=== PATIENT | female | born 1970 | race Caucasian/White ===

== ENCOUNTER 2018-05-19 18:30 | Emergency (ER) | payer OTHER ==
--- NOTE | 2018-05-19 19:26 | RAD REPORT ---
EXAM DESCRIPTION: RAD - Chest Single View - 05/19/2018 7:17 pm CLINICAL HISTORY: CHEST PAIN Chest pain. COMPARISON: Abdomen 1 View (KUB) dated 05/04/2016 FINDINGS: Portable technique limits examination quality. The lungs are grossly clear. The heart is normal in size. No displaced fractures. IMPRESSION: No acute intrathoracic process suspected.
--- NOTE | 2018-05-19 19:42 | RAD REPORT ---
EXAM DESCRIPTION: VAS - Extrem Venous W Compress Bernardino - 05/19/2018 7:35 pm CLINICAL HISTORY: SWELLING Bilateral leg edema and swelling. COMPARISON: Chest Single View dated 05/19/2018; Abdomen Pelvis W Contrast dated 08/30/2016 TECHNIQUE: Real-time sonographic interrogation of the left and right lower extremity deep venous sys tems was performed. FINDINGS: Normal compressibility, flow augmentation, phasic flow and spontaneous flow is identified in both the left and right lower extremity deep venous systems. IMPRESSION: No sonographic evidence of left or right lower extremity deep venous thrombosis.
[2018-05-19 20:04] LABS: Absolute Lymphocytes (CBC) 3.2 K/uL (0.7-4.9); Absolute Monocytes 0.6 K/uL (0.1-1.3); Absolute Neutrophil 7.4 K/uL (1.8-8.0); Basophils % 1.1 % (0-1.3); Eosinophils % 2.3 % (0-4.4); Hematocrit 46.1 % (36.0-45.0); Lymphocytes % 27.8 % (15.3-44.8); MCH 32.6 pg (27.0-35.0); MPV 9.2 fL (7.6-11.3); RBC Red Blood Cell Count 4.95 M/uL (3.86-4.86)
[2018-05-19 20:08] LABS: Protime INR 0.87
[2018-05-19 20:39] LABS: ALT/SGPT 42 U/L (12-78); AST/SGOT 20 U/L (15-37); Albumin 3.8 g/dL (3.4-5.0); Alkaline Phosphatase 134 U/L (45-117); BUN Blood Urea Nitrogen 9 mg/dL (7-18); Bicarbonate 28 mmol/L (21-32); Bilirubin Direct < 0.1 mg/dL (0-0.2); Bilirubin Total 0.3 mg/dL (0.2-1.0); CKMB Creatine Kinase MB < 1.0 ng/mL (0.3-3.6); Creatine Phosphokinase 38 U/L (26-192); Glucose Level 91 mg/dL (74-106); Magnesium 2.4 mg/dL (1.8-2.4); NT PRO-BNP 43 pg/mL (<125); Potassium 3.6 mmol/L (3.5-5.1); Protein, Total 7.7 g/dL (6.4-8.2); Sodium Level 139 mmol/L (136-145)
--- NOTE | 2018-05-19 20:46 | ER ---
Nurse's Notes [facility] Name: Cyndi Arndt Age: 48 yrs Sex: Female : 1970 Arrival Date: 05/19/2018 Time: 18:34 Bed 8 Private MD: Marc Yu Diagnosis: Costochondritis Presentation: 05/19 18:41 Presenting complaint: Patient states: Left side chest pain that is worse with deep aj breathing. Transition of care: patient was not received from another setting of care. Onset of symptoms was May 14, 2018. Risk Assessment: Do you want to hurt yourself or someone else? Patient reports no desire to harm self or others. Initial Sepsis Screen: Does the patient meet any 2 criteria? No. Patient's initial sepsis screen is negative. Does the patient have a suspected source of infection? No. Patient's initial sepsis screen is negative. Care prior to arrival: None. 18:41 Method Of Arrival: Ambulatory aj 18:41 Acuity: KITA 3 aj Triage Assessment: 18:44 General: Appears in no apparent distress. uncomfortable, Behavior is calm, cooperative, aj appropriate for age. Pain: Complains of pain in chest. Neuro: Level of Consciousness is awake, alert, obeys commands, Oriented to person, place, time, situation, Appropriate for age. Cardiovascular: Reports chest pain, Capillary refill < 3 seconds in bilateral fingers Patient's skin is warm and dry. Respiratory: Reports pain with respiration Airway is patent Respiratory effort is even, unlabored, Respiratory pattern is regular, symmetrical. Derm: Skin is intact, is healthy with good turgor, Skin is pink, warm \T\ dry. normal. 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 - Social history:: Smoking status: Patient uses tobacco products, smokes one-half pack cigarettes per day, smokes one pack cigarettes per day. - Ebola Screening: : Patient negative for fever greater than or equal to 101.5 degrees Fahrenheit, and additional compatible Ebola Virus Disease symptoms Patient denies exposure to infectious person Patient denies travel to an Ebola-affected area in the 21 days before illness onset No symptoms or risks identified at this time. Screenin:38 Abuse screen: Denies threats or abuse. Denies injuries from another. Nutritional aa1 screening: No deficits noted. Tuberculosis screening: No symptoms or risk factors identified. Fall Risk None identified. Assessment: 19:38 Reassessment: Patient appears in no apparent distress at this time. Pt back from CT at aa1 this time. General: Appears comfortable, Behavior is calm, cooperative, appropriate for age. Pain: Complains of pain in left arm and chest Pain radiates to left arm Pain began 4 days ago Is continuous. Neuro: Level of Consciousness is awake, alert, obeys commands, Oriented to person, place, time, situation, Moves all extremities. Full function Gait is steady, Speech is normal. Cardiovascular: Reports chest pain, Denies diaphoresis, nausea, palpitations, shortness of breath, Heart tones S1 S2 present Capillary refill < 3 seconds Clubbing of nail beds is absent JVD is absent Patient's skin is warm and dry. Rhythm is regular Chest pain is described as vague, quality is sharp, began 4 days ago is aggravated by breathing. Respiratory: Airway is patent Respiratory effort is even, unlabored, Respiratory pattern is regular, symmetrical, Breath sounds are clear bilaterally. GI: No signs and/or symptoms were reported involving the gastrointestinal system. : No signs and/or symptoms were reported regarding the genitourinary system. EENT: No signs and/or symptoms were reported regarding the EENT system. Derm: Skin is intact, is healthy with good turgor, Skin is pink, warm \T\ dry. Musculoskeletal: Circulation, motion, and sensation intact. Capillary refill < 3 seconds, Range of motion: intact in all extremities. 20:37 Reassessment: Patient appears in no apparent distress at this time. Patient and/or aa1 family updated on plan of care and expected duration. Pain level reassessed. Patient is alert, oriented x 3, equal unlabored respirations, skin warm/dry/pink. Awaiting lab results. 20:57 Reassessment: Patient appears in no apparent distress at this time. Patient is alert, aa1 oriented x 3, equal unlabored respirations, skin warm/dry/pink. Discussed d/c \T\ f/u instructions with pt; denies questions or concerns at this time Patient states feeling better. Vital Signs: 18:44 BP 141 / 81; Pulse 92; Resp 18; Temp 97.9; Pulse Ox 100% on R/A; Weight 99.79 kg; aj Height 5 ft. 2 in. (157.48 cm); 19:47 BP 134 / 96; Pulse 77; Resp 16; Pulse Ox 98% on R/A; aa1 20:37 BP 102 / 84; Pulse 86; Resp 16; Pulse Ox 95% on R/A; Pain 9/10; aa1 18:44 Body Mass Index 40.24 (99.79 kg, 157.48 cm) aj ED Course: 18:34 Patient arrived in ED. sb2 18:34 Marc Yu MD is Private Physician. sb2 18:42 Triage completed. aj 18:44 Arm band placed on right wrist. Patient placed in an exam room. aj 18:49 Santa Samano [facility]C [facility]. snw 18:49 Juve Calvillo MD is Attending Physician. snw 19:08 Rosa Saunders, TYESHA is Primary Nurse. aa1 19:11 EKG done, by ED staff, reviewed by Santa COBB. jp3 19:15 X-ray completed. Patient tolerated procedure well. kp1 19:16 XRAY Chest (1 view) In Process Unspecified. EDMS 19:35 US Extremity Venous W Compression Bernardino In Process Unspecified. EDMS 19:38 Patient has correct armband on for positive identification. Placed in gown. Bed in low aa1 position. Call light in reach. site monitor on. Pulse ox on. NIBP on. 19:38 Patient maintains SpO2 saturation greater than 95% on room air. aa1 19:45 Missed attempt(s): 22 gauge in right forearm. Bleeding controlled, band aid applied, aa1 catheter tip intact. 19:50 Initial lab(s) drawn, by nh, sent to lab. Inserted saline lock: 20 gauge in left aa1 antecubital area, using aseptic technique. Blood collected. 20:44 Marc Yu MD is Referral Physician. snw 20:57 No provider procedures requiring assistance completed. IV discontinued, intact, aa1 bleeding controlled, No redness/swelling at site. Pressure dressing applied. Administered Medications: 20:38 Drug: fentaNYL (PF) 50 mcg Route: IVP; Site: left antecubital; aa1 20:59 Follow up: Response: No adverse reaction; Pain is decreased aa1 Outcome: 20:46 Discharge ordered by MD. snw 20:57 Discharged to home ambulatory, with family. aa1 20:57 Condition: good 20:57 Discharge instructions given to patient, family, Instructed on discharge instructions, follow up and referral plans. medication usage, Demonstrated understanding of instructions, follow-up care, medications, Prescriptions given X 2. 20:59 Patient left the ED. aa1 Signatures: Dispatcher [employer] EDMS Rosa Saunders RN TYESHA aa1 Faiza Bhagat RN Santa Rdz, STADIUM ATTENDANT-C STADIUM ATTENDANT-Adela Pimentel kp1 Aminah Huynh sb2 Jason Huitron jp3
--- NOTE | 2018-05-19 20:46 | EDPHYS ---
Physician Documentation [facility] Name: Cyndi Arndt Age: 48 yrs Sex: Female : 1970 Arrival Date: 05/19/2018 Time: 18:34 Bed 8 Private MD: Marc Yu ED Physician Juve Calvillo HPI: 05/19 19:09 This 48 yrs old Female presents to ER via Ambulatory with complaints of Chest snw Pain. 19:09 Onset: The symptoms/episode began/occurred suddenly, 2 day(s) ago, and became snw persistent. Associated signs and symptoms: Pertinent positives: The patient does not have any pertinent positive signs or symptoms associated with pediatric illness. Modifying factors: The patient symptoms are alleviated by nothing, the patient symptoms are aggravated by deep inspiration. The patient has not experienced similar symptoms in the past. sees Aimee. just returned via car from [place] last week, bilateral legs with edema per report. REGULATORY INTERN: 18:44 LMP N/A - Hysterectomy aj Historical: - Allergies: 18:44 PENICILLINS; aj - Home Meds: 20:12 Lasix 20 mg Oral tab 1 tab once daily [Active]; meloxicam 7.5 mg oral tab 1 tab twice a aa1 day [Active]; Vitamin D3 5,000 unit oral tab weekly [Active]; - PMHx: 20:12 Arthritis; fluid retention; Hypertension; aa1 - PSHx: 18:44 Hysterectomy; Cholecystectomy; Tubal ligation; bladder mesh; aj - Immunization history:: Adult Immunizations up to date. - Social history:: Smoking status: Patient uses tobacco products, smokes one-half pack cigarettes per day, smokes one pack cigarettes per day. - Ebola Screening: : Patient negative for fever greater than or equal to 101.5 degrees Fahrenheit, and additional compatible Ebola Virus Disease symptoms Patient denies exposure to infectious person Patient denies travel to an Ebola-affected area in the 21 days before illness onset No symptoms or risks identified at this time. ROS: 19:09 Constitutional: Negative for fever, chills, and weight loss, Eyes: Negative for injury, snw pain, redness, and discharge, ENT: Negative for injury, pain, and discharge, Neck: Negative for injury, pain, and swelling. 19:09 Respiratory: Negative for shortness of breath, cough, wheezing, and pleuritic chest pain, Abdomen/GI: Negative for abdominal pain, nausea, vomiting, diarrhea, and constipation, Back: Negative for injury and pain, : Negative for injury, bleeding, discharge, and swelling, MS/Extremity: Negative for injury and deformity, Skin: Negative for injury, rash, and discoloration, Neuro: Negative for headache, weakness, numbness, tingling, and seizure. 19:09 Cardiovascular: Positive for chest pain. Exam: 19:09 Constitutional: This is a well developed, well nourished patient who is awake, alert, snw and in no acute distress. Head/Face: Normocephalic, atraumatic. Eyes: Pupils equal round and reactive to light, extra-ocular motions intact. Lids and lashes normal. Conjunctiva and sclera are non-icteric and not injected. Cornea within normal limits. Periorbital areas with no swelling, redness, or edema. ENT: Nares patent. No nasal discharge, no septal abnormalities noted. Tympanic membranes are normal and external auditory canals are clear. Oropharynx with no redness, swelling, or masses, exudates, or evidence of obstruction, uvula midline. Mucous membranes moist. Neck: Trachea midline, no thyromegaly or masses palpated, and no cervical lymphadenopathy. Supple, full range of motion without nuchal rigidity, or vertebral point tenderness. No Meningismus. Chest/axilla: Normal chest wall appearance and motion. Nontender with no deformity. No lesions are appreciated. Cardiovascular: Regular rate and rhythm with a normal S1 and S2. No gallops, murmurs, or rubs. Normal PMI, no JVD. No pulse deficits. Respiratory: Lungs have equal breath sounds bilaterally, clear to auscultation and percussion. No rales, rhonchi or wheezes noted. No increased work of breathing, no retractions or nasal flaring. Abdomen/GI: Soft, non-tender, with normal bowel sounds. No distension or tympany. No guarding or rebound. No evidence of tenderness throughout. Back: No spinal tenderness. No costovertebral tenderness. Full range of motion. Skin: Warm, dry with normal turgor. Normal color with no rashes, no lesions, and no evidence of cellulitis. MS/ Extremity: Pulses equal, no cyanosis. Neurovascular intact. Full, normal range of motion. Neuro: Awake and alert, GCS 15, oriented to person, place, time, and situation. Cranial nerves II-XII grossly intact. Motor strength 5/5 in all extremities. Sensory grossly intact. Cerebellar exam normal. Normal gait. Vital Signs: 18:44 BP 141 / 81; Pulse 92; Resp 18; Temp 97.9; Pulse Ox 100% on R/A; Weight 99.79 kg; aj Height 5 ft. 2 in. (157.48 cm); 19:47 BP 134 / 96; Pulse 77; Resp 16; Pulse Ox 98% on R/A; aa1 20:37 BP 102 / 84; Pulse 86; Resp 16; Pulse Ox 95% on R/A; Pain 9/10; aa1 18:44 Body Mass Index 40.24 (99.79 kg, 157.48 cm) aj MDM: 18:49 Patient medically screened. snw 20:47 Data reviewed: vital signs, nurses notes, lab test result(s), EKG, radiologic studies. snw Data interpreted: Pulse oximetry: on room air is 95 %. Interpretation: acceptable. Special discussion: Based on the patient's history, exam, and Dx evaluation, there is no indication for emergent intervention or inpatient Tx. It is understood by the patient/guardian that if the Sx's persist or worsen they need to return immediately for re-evaluation. Based on the history and exam findings, there is no indication for further emergent testing or inpatient evaluation. I discussed with the patient/guardian the need to see the plumber pipe fitting for further evaluation of the symptoms. I discussed with the patient/guardian the need to see the primary care provider for further evaluation of the symptoms. 05/19 18:58 Order name: Basic Metabolic Panel; Complete Time: 20:44 snw 05/19 18:58 Order name: CBC with Diff; Complete Time: 20:24 snw 05/19 18:58 Order name: Ckmb; Complete Time: 20:44 snw 05/19 18:58 Order name: CPK; Complete Time: 20:44 snw 05/19 18:58 Order name: LFT's; Complete Time: 20:44 snw 05/19 18:58 Order name: Magnesium; Complete Time: 20:44 snw 05/19 18:58 Order name: NT PRO-BNP; Complete Time: 20:44 snw 05/19 18:58 Order name: PT-INR; Complete Time: 20:24 snw 05/19 18:58 Order name: Ptt, Activated; Complete Time: 20:24 snw 05/19 18:58 Order name: Troponin (emerg Dept Use Only); Complete Time: 20:44 snw 05/19 18:58 Order name: XRAY Chest (1 view); Complete Time: 19:45 snw 05/19 18:58 Order name: DD; Complete Time: 20:24 snw 05/19 19:14 Order name: Urine Dipstick--Ancillary (enter results) eb 05/19 19:14 Order name: Urine --Ancillary (enter results) eb 05/19 18:58 Order name: EKG; Complete Time: 18:59 snw 05/19 18:58 Order name: Cardiac monitoring; Complete Time: 20:06 snw 05/19 18:58 Order name: EKG - Nurse/Tech; Complete Time: 20:06 snw 05/19 18:58 Order name: IV Saline Lock; Complete Time: 20:06 snw 05/19 18:58 Order name: Labs collected and sent; Complete Time: 20:06 snw 05/19 18:58 Order name: O2 Per Protocol; Complete Time: 20:06 snw 05/19 18:58 Order name: O2 Sat Monitoring; Complete Time: 20:07 snw 05/19 18:58 Order name: Urine Dipstick-Ancillary (obtain specimen); Complete Time: 20:07 snw 05/19 19:02 Order name: US Extremity Venous W Compression Bernardino; Complete Time: 19:45 snw Administered Medications: 20:38 Drug: fentaNYL (PF) 50 mcg Route: IVP; Site: left antecubital; aa1 20:59 Follow up: Response: No adverse reaction; Pain is decreased aa1 Disposition: 05/20 06:52 Co-signature as Attending Physician, Juve Calvillo MD I agree with the assessment and lawrence plan of care. Disposition: 05/19/18 20:46 Discharged to Home. Impression: Costochondritis. - Condition is Stable. - Discharge Instructions: Nonspecific Chest Pain, Costochondritis. - Prescriptions for Diclofenac Sodium 75 mg Oral Tablet Sustained Release - take 1 tablet by ORAL route 2 times per day; 30 tablet. orphenadrine citrate 100 mg Oral Tablet Sustained Release - take 1 tablet by ORAL route 2 times per day As needed; 20 tablet. - Medication Reconciliation Form, Thank You Letter, Antibiotic Education, Prescription Opioid Use form. - Follow up: Marc Yu MD; When: Tomorrow; Reason: Recheck today's complaints, Continuance of care, Re-evaluation by your physician. Follow up: Emergency Department; When: As needed; Reason: Worsening of condition. Signatures: Dispatcher [employer] EDRosa Gallegos RN RN aa1 Faiza Bhagat RN RN aj Anderson, Corey, MD MD cha Therrien, Shelly, [employer]OR [employer]-C [employer]OR [employer]-Csnw Corrections: (The following items were deleted from the chart) 05/19 20:59 20:46 05/19/2018 20:46 Discharged to Home. Impression: Costochondritis. Condition is aa1 Stable. Forms are Medication Reconciliation Form, Thank You Letter, Antibiotic Education, Prescription Opioid Use. Follow up: Marc Yu; When: Tomorrow; Reason: Recheck today's complaints, Continuance of care, Re-evaluation by your physician. Follow up: Emergency Department; When: As needed; Reason: Worsening of condition. snw
[2018-05-19 21:14] VITALS: TEMP 97.9
[2018-05-19 21:17] VITALS: BP 102/84; O2SAT 95
[2018-05-19 22:17] LABS: Urine Blood NEGATIVE (NEG); Urine Glucose NEGATIVE (NEG); Urine Protein NEGATIVE (NEG); Urine pH 5.5 (5.0-7.0)
--- NOTE | 2018-05-20 15:44 | EKG ---
Test Date: 2018-05-19 Test Time: 19:07:48 Portrait Consultant: CHIKIS MEASUREMENT RESULTS: Intervals: Rate: 74 CA: 178 QRSD: 78 QT: 396 QTc: 439 [place]: P: 25 CA: 178 QRS: -2 T: 33 INTERPRETIVE STATEMENTS: Normal sinus rhythm Normal ECG Compared to ECG 08/26/2013 09:36:05 Sinus bradycardia no longer present Electronically Signed On 05-20-18 15:41:17 CDT by Les Garcia
== END 2018-05-19 20:59 | disposition home or self-care (01) ==
LOC: ER 18:30
DX: M94.0 Chondrocostal junction syndrome [Tietze] (principal); I10 Essential (primary) hypertension; F17.210 Nicotine dependence, cigarettes, uncomplicated; Z88.0 Allergy status to penicillin
CPT/HCPCS: 36415; 71045; 80048; 80076; 81003; 81025; 82550; 82553; 83735; 83880; 84484; 85025; 85379; 85610; 85730; 93005; 93970; 96374; 99285